=== PATIENT | female | born 1975 | race Caucasian/White ===

== ENCOUNTER 2017-01-18 09:31 | Emergency (ER) | payer MEDICAID, OTHER ==
[~2017-01-18] VITALS: Ht 144.8 cm; Wt 91.0 kg
[2017-01-18 09:56] VITALS: BP 108/68
[2017-01-18] MEDS ORDERED: ACETAMINOPHEN 325MG TABLET PO ONE (11:45)
[2017-01-18 12:07] LABS: BASOPHILS % 0.9 % (0.0-2.0); EOSINOPHILS % 2.1 % (0.0-5.0); HEMATOCRIT. 37.5 % (36.0-48.0); HEMOGLOBIN. 12.2 g/dL (12.0-16.0); LYMPHOCYTES % 21.7 % (20.0-50.0); MEAN CORPUSCULAR HEMOGLOBIN 27.2 pg (28.0-32.0); MEAN CORPUSCULAR HGB CONC 32.5 g/dL (31.0-37.0); MEAN CORPUSCULAR VOLUME 83.7 fL (81.0-99.0); MEAN PLATELET VOLUME 7.6 fl (7.4-10.4); NEUTROPHILS % 70.3 % (40.0-76.0); PLATELET 315 x1000/uL (130-400); RED BLOOD CELL COUNT 4.48 mill/uL (4.2-5.4); RED CELL DISTRIBUTION WIDTH 15.4 % (11.6-14.6)
[2017-01-18 12:14] LABS: CHLORIDE 106 mEq/L (98-107); INDEX HEMOLYSI 1 (1-3); INDEX ICTERIC 1 (1-4); INDEX LIPEMIC 1 (1-3)
[2017-01-18 12:23] LABS: ANION GAP 13; CALCIUM 8.3 mg/dL (8.5-10.1); CARBON DIOXIDE 26 mEq/L (21-32); UREA NITROGEN BLOOD 16 mg/dL (7-21); eGFR > 60 mL/min (>60)
[2017-01-18 12:24] LABS: B-HCG QUANTITATIVE < 1 mIU/mL (<3)
== END 2017-01-18 13:44 | disposition home or self-care (01) ==
LOC: ER 10:35
DX: M77.9 Enthesopathy, unspecified (principal); R53.1 Weakness; N89.8 Other specified noninflammatory disorders of vagina; E11.9 Type 2 diabetes mellitus without complications; Z98.890 Other specified postprocedural states; Z88.6 Allergy status to analgesic agent
CPT/HCPCS: 29125; 36415; 73110; 73130; 80048; 84702; 85025; 99285; Z7610

== ENCOUNTER 2017-06-07 23:04 | Emergency (ER) | payer MEDICAID, OTHER ==
[~2017-06-07] VITALS: Ht 149.9 cm; Wt 86.0 kg
[2017-06-08 01:23] LABS: CLARITY URINE CLEAR (CLEAR); COLOR URINE YELLOW (YELLOW); GLUCOSE URINE NEGATIVE (NEGATIVE); KETONES URINE NEGATIVE (NEGATIVE); LEUKOCYTE ESTERASE URINE 1+ (NEGATIVE); NITRITE URINE NEGATIVE (NEGATIVE); OCCULT BLOOD URINE NEGATIVE (NEGATIVE); PROTEIN URINE NEGATIVE (NEGATIVE); SPECIFIC GRAVITY URINE 1.024 (1.005-1.030)
[2017-06-08 01:28] LABS: BASOPHILS % 0.6 % (0.0-2.0); EOSINOPHILS % 2.2 % (0.0-5.0); HEMATOCRIT. 34.8 % (36.0-48.0); HEMOGLOBIN. 11.7 g/dL (12.0-16.0); LYMPHOCYTES % 30.3 % (20.0-50.0); MEAN CORPUSCULAR HEMOGLOBIN 28.2 pg (28.0-32.0); MEAN CORPUSCULAR VOLUME 83.7 fL (81.0-99.0); MEAN PLATELET VOLUME 7.6 fl (7.4-10.4); MONOCYTES % 6.7 % (2.0-8.0); NEUTROPHILS % 60.2 % (40.0-76.0); PLATELET 278 x1000/uL (130-400); RED BLOOD CELL COUNT 4.16 mill/uL (4.2-5.4); RED CELL DISTRIBUTION WIDTH 14.6 % (11.6-14.6)
[2017-06-08 01:34] LABS: CHLORIDE 109 mEq/L (98-107)
[2017-06-08 01:40] LABS: CARBON DIOXIDE 27 mEq/L (21-32)
[2017-06-08 03:34] VITALS: BP 118/72
== END 2017-06-08 03:52 | disposition home or self-care (01) ==
LOC: ER 23:04
DX: N39.0 Urinary tract infection, site not specified (principal); N76.0 Acute vaginitis; E11.9 Type 2 diabetes mellitus without complications; Z88.6 Allergy status to analgesic agent
CPT/HCPCS: 36415; 80048; 81001; 81025; 85025; 99284; Z7610

== ENCOUNTER 2017-09-08 15:11 | Emergency (ER) | payer MEDICAID ==
[~2017-09-08] VITALS: Ht 149.9 cm; Wt 88.0 kg
[2017-09-08 15:46] VITALS: BP 111/73
[2017-09-08] MEDS ORDERED: METF500T4 PO (15:48)
[2017-09-08] MEDS ORDERED: BALANCED SALT IRRIG SOLN 15ML IO ONE (20:15)
[2017-09-08] MEDS ORDERED: TETRACAINE 0.5% OPHTH DROPS 4ML OP ONE (20:15)
[2017-09-08] MEDS ORDERED: FLUORESCEIN SODIUM 1MG/STRIP OP ONE (20:15)
[2017-09-08 20:45] LABS: HCG SCREEN NEGATIVE
== END 2017-09-08 22:17 | disposition home or self-care (01) ==
LOC: ER 15:11
DX: H10.212 Acute toxic conjunctivitis, left eye (principal); E11.9 Type 2 diabetes mellitus without complications; Z88.6 Allergy status to analgesic agent; Z98.890 Other specified postprocedural states
CPT/HCPCS: 84703; 99284; J7050

== ENCOUNTER 2018-07-23 09:00 | Emergency (ER) | payer MEDICAID ==
[~2018-07-23] VITALS: Ht 149.9 cm; Wt 98.4 kg
[~2018-07-23 09:00] MED LIST: METF500T6 PO
[2018-07-23] MEDS ORDERED: ACETAMINOPHEN WITH CODEINE 300/30MG TABLET PO ONE (11:30)
[2018-07-23 12:07] VITALS: BP 112/60
== END 2018-07-23 13:14 | disposition home or self-care (01) ==
LOC: ER 10:22
DX: M79.642 Pain in left hand (principal); E11.9 Type 2 diabetes mellitus without complications; Z98.890 Other specified postprocedural states; Z88.6 Allergy status to analgesic agent
CPT/HCPCS: 29125; 73130; 81025; 99284

== ENCOUNTER 2019-09-07 12:54 | Emergency (ER) | payer MEDICAID, OTHER ==
[~2019-09-07] VITALS: Ht 152.4 cm; Wt 90.0 kg
[~2019-09-07 12:54] MED LIST changes: +METF-414 PO; -METF500T6 PO
[2019-09-07 14:08] VITALS: BP 119/64
== END 2019-09-07 14:11 | disposition home or self-care (01) ==
LOC: ER 12:54
DX: R68.84 Jaw pain (principal); K04.7 Periapical abscess without sinus; E11.9 Type 2 diabetes mellitus without complications; Z98.890 Other specified postprocedural states; Z88.6 Allergy status to analgesic agent
CPT/HCPCS: 99282; 99283

== ENCOUNTER 2021-07-11 22:50 | Emergency (ER) | payer MEDICAID ==
[~2021-07-11] VITALS: Ht 149.9 cm; Wt 87.0 kg
[~2021-07-11 22:50] MED LIST changes: +ACET-2708 PO; +FLUC150T5 MT; +METR70GE17 VG; +SULF1TAB48 PO
[2021-07-11 23:05] VITALS: BP 135/80
[2021-07-12] MEDS ORDERED: ACETAMINOPHEN WITH CODEINE 300/30MG TABLET PO ONE (01:15)
[2021-07-12] MEDS ORDERED: ACET-2708 MT (02:09)
== END 2021-07-12 02:57 | disposition home or self-care (01) ==
LOC: ER 22:50
DX: S09.8XXA Other specified injuries of head, initial encounter (principal); E11.9 Type 2 diabetes mellitus without complications; W18.39XA Other fall on same level, initial encounter; Y93.89 Activity, other specified; Y92.89 Other specified places as the place of occurrence of the external cause; Y99.8 Other external cause status; Z98.890 Other specified postprocedural states; Z79.899 Other long term (current) drug therapy
CPT/HCPCS: 71045; 81025; 99283

== ENCOUNTER 2021-12-27 22:55 | Emergency (ER) | payer MEDICAID ==
[~2021-12-27] VITALS: Ht 149.9 cm; Wt 85.0 kg
[~2021-12-27 22:55] MED LIST changes: +ACET-2708 MT
[2021-12-27] MEDS ORDERED: ACETAMINOPHEN 325MG TABLET PO STA (23:45)
[2021-12-28] MEDS ORDERED: TUSSL PO (02:40)
[2021-12-28] MEDS ORDERED: NAPR-681 PO (02:40)
[2021-12-28] MEDS ORDERED: FLUT9.9S BOTHNSTRLS (02:40)
[2021-12-28 03:16] VITALS: BP 145/86
== END 2021-12-28 03:18 | disposition home or self-care (01) ==
LOC: ER 22:55
DX: J06.9 Acute upper respiratory infection, unspecified (principal); Z20.822 Contact with and (suspected) exposure to COVID-19; Z98.890 Other specified postprocedural states; Z88.6 Allergy status to analgesic agent
CPT/HCPCS: 87070; 87077; 87426; 87430; 99283

== ENCOUNTER 2022-03-02 16:09 | Emergency (ER) | payer MEDICAID ==
[~2022-03-02] VITALS: Ht 147.3 cm; Wt 83.0 kg
[~2022-03-02 16:09] MED LIST changes: +AMOX-494 PO; +FLUT9.9S BOTHNSTRLS; +NAPR-681 PO; +TUSSL PO
[2022-03-02 16:18] VITALS: BP 159/82
[2022-03-02] MEDS ORDERED: IBUP-2029 MT (18:49)
[2022-03-02] MEDS ORDERED: CYCL5TAB MT (18:49)
== END 2022-03-02 19:28 | disposition home or self-care (01) ==
LOC: ER 16:09
DX: S00.03XA Contusion of scalp, initial encounter (principal); S13.8XXA Sprain of joints and ligaments of other parts of neck, initial encounter; S80.02XA Contusion of left knee, initial encounter; S80.01XA Contusion of right knee, initial encounter; Z88.6 Allergy status to analgesic agent; W01.0XXA Fall on same level from slipping, tripping and stumbling without subsequent striking against object, initial encounter; Y93.89 Activity, other specified; Y92.488 Other paved roadways as the place of occurrence of the external cause
CPT/HCPCS: 99281

== ENCOUNTER 2024-02-12 10:44 | Emergency (ER) | payer MEDICAID, OTHER ==
[~2024-02-12] VITALS: Ht 149.9 cm; Wt 85.3 kg
[~2024-02-12 10:44] MED LIST changes: +CYCL5TAB MT; +FLUC150T46 MT; -FLUC150T5 MT; +IBUP-2029 MT
[2024-02-12 10:51] VITALS: BP 150/55; PULSE 83; RESP 16; TEMP 98; O2SAT 99
[2024-02-12 13:01] LABS: CLARITY URINE CLEAR (CLEAR); COLOR URINE YELLOW (YELLOW); GLUCOSE URINE 3+ (NEGATIVE); KETONES URINE NEGATIVE (NEGATIVE); LEUKOCYTE ESTERASE URINE NEGATIVE (NEGATIVE); NITRITE URINE NEGATIVE (NEGATIVE); OCCULT BLOOD URINE NEGATIVE (NEGATIVE); PROTEIN URINE NEGATIVE (NEGATIVE); SPECIFIC GRAVITY URINE 1.043 (1.005-1.030); UROBILINOGEN URINE 0.2 E.U./dL (0.2-1.0)
[2024-02-12] MEDS: CEFTRIAXONE SODIUM 500MG VIAL IM ONE (13:15)
[2024-02-12] MEDS ORDERED: DOXY100T2 MT (13:23)
[2024-02-12] MEDS ORDERED: METR-167 MT (13:23)
[2024-02-12 13:37] LABS: SQUAMOUS EPITHELIAL CELL URINE RARE /lpf (RARE/1+)
[2024-02-12 13:39] LABS: BACTERIA URINE TRACE
[2024-02-12 13:41] LABS: RBC URINE NONE SEEN /hpf (0-2); WBC URINE NONE SEEN /hpf (0-2)
== END 2024-02-12 14:06 | disposition home or self-care (01) ==
LOC: ER 10:44
DX: N76.0 Acute vaginitis (principal); A64 Unspecified sexually transmitted disease; E11.9 Type 2 diabetes mellitus without complications; Z88.6 Allergy status to analgesic agent
CPT/HCPCS: 81003; 81025; 82962; 96372; 99284; J0696; Z7610